=== PATIENT | female | born 1985 | race Caucasian/White ===

== ENCOUNTER 2017-01-10 22:17 | Observation (INO) | payer SELFPAY ==
[~2017-01-10] VITALS: Ht 162.6 cm; Wt 56.7 kg
[2017-01-10 22:20] VITALS: BP 103/50
[2017-01-10] MEDS ORDERED: NKM (22:20)
--- NOTE | 2017-01-10 22:39 | Emergency Room Report ---
History of Present Illness General Chief Complaint: Abdominal Pain Source: Patient Present Illness HPI Is a 31-year-old female with no past medical issue. She presents with chief complaint abdominal pain. onset was acute and occurred around 3 PM. Pain is to the right upper quadrant. Radiate to the flank and also to the left side. She has nausea vomiting. Pain is 10 out of 10. Sharp in nature. No diarrhea. Subjective fever with chills never had this problem before. Onset was acute. Allergies: Coded Allergies: No Known Allergies (Unverified , 01/10/17) Patient History Past Medical History: none, see triage record, old chart reviewed Past Surgical History: none Pertinent Family History: none Social History: Denies: smoking Last Menstrual Period: DECEMBER 14 Now: No Immunizations: other Reviewed Nursing Documentation: PMH: Agreed, PSxH: Agreed Review of Systems Eye: Denies: blurred vision, eye pain ENT: Denies: ear pain, nose congestion, throat swelling Respiratory: Denies: cough, shortness of breath Cardiovascular: Denies: chest pain, palpitations Gastrointestinal: Reports: abdominal pain, nausea, vomiting, Denies: diarrhea Musculoskeletal: Denies: back pain, joint pain Skin: Denies: rash Neurological: Denies: headache, numbness Endocrine: Denies: increased thirst, increased urine Hematologic/Lymphatic: Denies: easy bruising All Other Systems: negative except mentioned in HPI Physical Exam Vital Signs Date Time Temp Pulse Resp B/P Pulse Ox O2 Delivery O2 Flow Rate FiO2 01/10/17 22:11 98.4 98 18 119/71 97 Room Air vitals normal Sp02 EP Interpretation: reviewed, normal General Appearance: well appearing, alert, moderate distress - From pain Head: normocephalic, atraumatic Eyes: bilateral eye EOMI, bilateral eye PERRL ENT: hearing grossly normal, normal pharynx Neck: full range of motion, supple, no meningismus Respiratory: chest non-tender, lungs clear, normal breath sounds Cardiovascular #1: regular rate, rhythm, no murmur Gastrointestinal: normal bowel sounds, no mass, no organomegaly, no bruit, non- distended, tenderness - Right upper quadrant Musculoskeletal: back normal, gait/station normal, normal range of motion Psychiatric: mood/affect normal Skin: warm/dry Procedures Critical Care Time Critical Care Time Critical care is mandated in this patient who presented with rupture ectopic . Patient require my urgent intervention to attenuate the risks of metabolic collapse which may lead to cardiovascular collapse and . Critical care time is 35 minutes excluding any reportable procedure. Critical care time included evaluation, multiple reevaluation, looking at old charts, interpreting laboratory and diagnostic data, discussing case with patient and family and consultants, and charting. Medical Decision Making Diagnostic Impression: Primary Impression: Ruptured ectopic Additional Impression: Acute post-hemorrhagic anemia ER Course Patient with abdominal pain. I did a bedside ultrasound and gallbladder was normal. There is fluid in the right paracolic gutter. Business Taxes Specialist did an ultrasound and show that there is fluid in the pelvis. There is no IUP. This is concerning for ectopic . Probably ruptured. Blood pressure was tenuous with systolic in the high 90s to low 100. She is anemic and this is worrisome for bleeding. I discussed the case with Dr. Tulio Fisher, NETWORK SECURITY ENGINEER, who will activate the OR team. Lab Results Impression labs with anemia CT/MRI/US Diagnostic Results CT/MRI/US Diagnostic Results : Imaging Test Ordered: Pelvic ultrasound Impression read by partner. Fluid in the pelvis. no IUP. concerning for ectopic. Last Vital Signs Date Time Temp Pulse Resp B/P Pulse Ox O2 Delivery O2 Flow Rate FiO2 01/10/17 22:20 98.4 87 24 103/50 98 Room Air Status: improved Disposition: ADMITTED INPATIENT Condition: Serious JANAY TAYLOR M.D. January 10, 2017 22:39
[2017-01-10] MEDS ORDERED: Morphine Sulfate 4mg/ml Inj IVP ONE (22:45)
[2017-01-10 22:51] LABS: MEAN CORPUSCULAR HEMOGLOBIN 24.2 PG (27.0-31.0); MEAN CORPUSCULAR HGB CONC 32.2 G/DL (32.0-36.0); MEAN CORPUSCULAR VOLUME 75 FL (80-99); MEAN PLATELET VOLUME 8.2 FL (6.5-10.1); PLATELET COUNT 211 K/UL (150-450); RED BLOOD COUNT 3.68 M/UL (4.20-5.40); RED CELL DISTRIBUTION WIDTH 13.1 % (11.6-14.8); WHITE BLOOD COUNT 10.9 K/UL (4.8-10.8)
[2017-01-10 23:02] LABS: ALANINE AMINOTRANSFERASE 6 U/L (3-33); ALBUMIN/GLOBULIN RATIO 1.4 (1.0-2.7); ANION GAP 12 (5-15); ASPARTATE AMINO TRANSFERASE 8 U/L (5-40); CALCIUM 8.6 mg/dL (8.6-10.2); CARBON DIOXIDE 25 mEQ/L (20-30); CHLORIDE 98 mEQ/L (98-107); CREATININE 0.4 mg/dL (0.5-0.9); GLOMERULAR FILTRATION RATE > 60 mL/min (>60); HEMOLYSIS 1; LIPASE 30 U/L (< 60); POTASSIUM 3.9 mEQ/L (3.4-4.9); SODIUM 135 mEQ/L (135-145); TOTAL PROTEIN 6.2 g/dL (6.6-8.7)
[2017-01-10 23:06] LABS: APPEARANCE,URINE SLIGHTLY CLOUDY; KETONES,URINE 3+ (NEGATIVE); LEUKOCYTE ESTERASE ,URINE NEGATIVE (NEGATIVE); NITRITE,URINE NEGATIVE (NEGATIVE); PH,URINE 6 (4.5-8.0); PROTEIN,URINE 1+ (NEGATIVE); UROBILINOGEN,URINE NORMAL MG/DL (0.0-1.0)
[2017-01-10 23:17] LABS: BACTERIA,URINE MODERATE /HPF; ICTOTEST NEGATIVE; MUCUS,URINE FEW /LPF (NONE/OCC); SQUAMOUS EPITHELIAL CELL,UR MANY /LPF (NONE/OCC); WBC,URINE 0-2 /HPF (0 - 2)
[2017-01-10 23:30] VITALS: BP 98/40
[2017-01-11] VITALS (13 sets, daily range): BP systolic 98–139; BP diastolic 46–79
[2017-01-11] MEDS ORDERED: Morphine Sulfate 4mg/ml Inj IVP ONE
[2017-01-11 00:14] LABS: BAND NEUTROPHILS % (MANUAL) 4 % (0-8); LYMPHOCYTES % (MANUAL) 14 % (20-45); NEUTROPHILS % (MANUAL) 82 % (45-75); TOTAL CELLS COUNTED 100
[2017-01-11 00:15] LABS: ANISOCYTOSIS 1+; BASOPHILS % (MANUAL) 0 % (0-2); EOSINOPHILS % (MANUAL) 0 % (0-3); PLATELET ESTIMATE ADEQUATE; PLATELET MORPHOLOGY NORMAL; POIKILOCYTOSIS 1+
[2017-01-11] MEDS ORDERED: Ipratropium 0.02% Inh Soln 2.5ml UD ONE (00:21)
[2017-01-11] MEDS ORDERED: Albuterol ud Inhalation ONE (00:21)
[2017-01-11] MEDS ORDERED: Ketorolac 30mg Inj IV ONE (01:00)
[2017-01-11] MEDS ORDERED: Hydromorphone 0.5mg/0.5ml inj ONE (01:32)
[2017-01-11] MEDS ORDERED: HYDROmorphone 1mg/ml Carpuject IVP ONE ×2 (01:45→02:15)
[2017-01-11] MEDS ORDERED: Ropivacaine 5mg/ml Vial 20ml INJ ONE (01:51)
--- NOTE | 2017-01-11 02:31 | Anethesia Preoperative Eval ---
Anesthesia Pre-op PMH/ROS General Date of Evaluation: January 11, 2017 Anesthesiologist: Jonny ASA Score: ASA 1 - E Mallampati Score Class I : Soft palate, uvula, fauces, pillars visible Class II: Soft palate, uvula, fauces visible Class III: Soft palate, base of uvula visible Class IV: Only hard plate visible Mallampati Classification: Class II Surgeon: Natalia Diagnosis: Ectopic Surgical Procedure: Laparoscopic ectopic treatment Anesthesia History: none Family History: no anesthesia problems Allergies: Coded Allergies: No Known Allergies (Unverified , 01/10/17) Medications: see eMAR Past Medical History Cardiovascular: Denies: CAD, HTN, [place], arrhythmia, other, valve dz Pulmonary: Denies: COPD, ALFREDO, asthma, other Gastrointestinal/Genitourinary: Denies: CRI, ESRD, GERD, other Neurologic/Psychiatric: Denies: CVA, TIA, dementia, depression/anxiety, other Endocrine: Denies: DM, hypothyroidism, other, steroids HEENT: Denies: [place] (L), [place] (R), cataract (L), cataract (R), glaucoma, other Hematology/Immune: Reports: anemia - acute, Denies: DVT, bleeding disorder, other Musculoskeletal/Integumentary: Denies: DDD, DJD, OA, RA, edema, other PSxH Narrative: liposuction Anesthesia Pre-op Phys. Exam Physician Exam Last Vital Signs Date Time Temp Pulse Resp B/P Pulse Ox O2 Delivery O2 Flow Rate FiO2 01/11/17 01:30 98.4 01/11/17 01:30 84 17 115/79 100 Room Air Constitutional: other - in severe pain Cardiovascular: other - tachy Respiratory: CTA Airway Exam Mallampati Score: Class II MO: full ROM: full Teeth: intact Anesthesia Pre-op A/P Labs Hematology Test 01/10/17 22:32 White Blood Count 10.9 K/UL (4.8-10.8) H Red Blood Count 3.68 M/UL (4.20-5.40) L Hemoglobin 8.9 G/DL (12.0-16.0) L Hematocrit 27.7 % (37.0-47.0) L Mean Corpuscular Volume 75 FL (80-99) L Mean Corpuscular Hemoglobin 24.2 PG (27.0-31.0) L Mean Corpuscular Hemoglobin Concent 32.2 G/DL (32.0-36.0) Red Cell Distribution Width 13.1 % (11.6-14.8) Platelet Count 211 K/UL (150-450) Mean Platelet Volume 8.2 FL (6.5-10.1) Neutrophils (%) (Auto) % (45.0-75.0) Lymphocytes (%) (Auto) % (20.0-45.0) Monocytes (%) (Auto) % (1.0-10.0) Eosinophils (%) (Auto) % (0.0-3.0) Basophils (%) (Auto) % (0.0-2.0) Differential Total Cells Counted 100 Neutrophils % (Manual) 82 % (45-75) H Lymphocytes % (Manual) 14 % (20-45) L Monocytes % (Manual) 0 % (1-10) L Eosinophils % (Manual) 0 % (0-3) Basophils % (Manual) 0 % (0-2) Band Neutrophils 4 % (0-8) Platelet Estimate Adequate Platelet Morphology Normal Poikilocytosis 1+ Anisocytosis 1+ Chemistry Test 01/10/17 22:32 01/10/17 23:40 Sodium Level 135 mEQ/L (135-145) Potassium Level 3.9 mEQ/L (3.4-4.9) Chloride Level 98 mEQ/L (98-107) Carbon Dioxide Level 25 mEQ/L (20-30) Anion Gap 12 (5-15) Blood Urea Nitrogen 10 mg/dL (7-23) Creatinine 0.4 mg/dL (0.5-0.9) L Estimat Glomerular Filtration Rate > 60 mL/min (>60) Glucose Level 142 mg/dL (74-106) H Calcium Level 8.6 mg/dL (8.6-10.2) Total Bilirubin 0.2 mg/dL (0.0-1.2) Aspartate Amino Transf (AST/SGOT) 8 U/L (5-40) Alanine Aminotransferase (ALT/SGPT) 6 U/L (3-33) Alkaline Phosphatase 32 U/L (35-104) L Total Protein 6.2 g/dL (6.6-8.7) L Albumin 3.7 g/dL (3.5-5.2) Globulin 2.5 g/dL Albumin/Globulin Ratio 1.4 (1.0-2.7) Lipase 30 U/L (< 60) Human Chorionic Gonadotropin, Quant 5415 mIU/mL Urine Test Test 01/10/17 22:58 Urine HCG, Qualitative Positive Risk Assessment & Plan Assessment: ASA IE Plan: GA Status Change Before Surgery: No Pre-Antibiotics Drug: Ancef 1g Given Within 1 Hr of Incision: Yes Time Given: 03:30 STARLA EVANS M.D. January 11, 2017 02:31
[2017-01-11] MEDS ORDERED: fentaNYL 250mcg/5ml ONE (03:00)
[2017-01-11] MEDS ORDERED: NS Irrig 1000ml ONE (03:00)
[2017-01-11] MEDS ORDERED: Propofol 10mg/ml 20ml IV ONE (03:00)
[2017-01-11] MEDS ORDERED: Midazolam 2mg/2ml Inj ONE (03:00)
[2017-01-11] MEDS ORDERED: Metoclopramide 10mg/2ml Inj ONE (03:00)
[2017-01-11] MEDS ORDERED: Sterile Water Irrig 1000ml IRRIG ONE (03:00)
[2017-01-11] MEDS ORDERED: LR 1000ml ONE (03:00)
[2017-01-11] MEDS ORDERED: Lidocaine 1% MPF 10mg/ml 5ml ONE (03:00)
[2017-01-11] MEDS ORDERED: Dexamethasone 4mg/ml vial ONE (03:00)
[2017-01-11] MEDS ORDERED: Nimbex 2mg/ml Inj 10ML IVP ONE (03:00)
--- NOTE | 2017-01-11 03:12 | Pre-Procedure Note/Attestation ---
Pre-Procedure Note/Attestation Complete Prior to Procedure Planned Procedure: right Procedure Narrative: Diagnostic Laparoscopy, Laparoscopic Treatment of the Ectopic , Possible Salpingectomy, Possible Salpingotomy Indications for Procedure Pre-Operative Diagnosis: Probable Right Ectopic - Ruptured Attestation I attest that I discussed the nature of the procedure; its benefits; risks and complications; and alternatives (and the risks and benefits of such alternatives ), prior to the procedure, with the patient (or the patient's legal compliance representative dealer). I attest that, if there was a reasonable possibility of needing a blood transfusion, the patient (or the patient's legal compliance representative dealer) was given the [facility] standardized written summary, pursuant to the [place]o [place] Blood Safety Act ([place] Health and Safety Code # 1645, as amended). I attest that I re-evaluated the patient just prior to the surgery and that there has been no change in the patient's H&P, except as documented below:NONE KAYLA RASCON January 11, 2017 03:12
--- NOTE | 2017-01-11 03:19 | Short Stay Surgery H&P ---
History of Present Illness History of Present Illness Chief Complaint Severe, acute onset of Right Lower Quadrant pain HPI Becki Pittman is a 31 year old female who was admitted on for Ectopic Patient History Allergies: Coded Allergies: No Known Allergies (Unverified , 01/10/17) PAST MEDICAL HISTORY: Past Surgeries: Social History: Medication History Scheduled No Known Medications* (NKM - No Known Medications*), 0 ., (Reported) Physical Exam Vital Signs Last Vital Signs Date Time Temp Pulse Resp B/P Pulse Ox O2 Delivery O2 Flow Rate FiO2 01/11/17 01:30 98.4 01/11/17 01:30 84 17 115/79 100 Room Air Labs Laboratory Tests Test 01/10/17 22:32 01/10/17 22:58 01/10/17 23:40 White Blood Count 10.9 K/UL (4.8-10.8) H Red Blood Count 3.68 M/UL (4.20-5.40) L Hemoglobin 8.9 G/DL (12.0-16.0) L Hematocrit 27.7 % (37.0-47.0) L Mean Corpuscular Volume 75 FL (80-99) L Mean Corpuscular Hemoglobin 24.2 PG (27.0-31.0) L Mean Corpuscular Hemoglobin Concent 32.2 G/DL (32.0-36.0) Red Cell Distribution Width 13.1 % (11.6-14.8) Platelet Count 211 K/UL (150-450) Mean Platelet Volume 8.2 FL (6.5-10.1) Neutrophils (%) (Auto) % (45.0-75.0) Lymphocytes (%) (Auto) % (20.0-45.0) Monocytes (%) (Auto) % (1.0-10.0) Eosinophils (%) (Auto) % (0.0-3.0) Basophils (%) (Auto) % (0.0-2.0) Differential Total Cells Counted 100 Neutrophils % (Manual) 82 % (45-75) H Lymphocytes % (Manual) 14 % (20-45) L Monocytes % (Manual) 0 % (1-10) L Eosinophils % (Manual) 0 % (0-3) Basophils % (Manual) 0 % (0-2) Band Neutrophils 4 % (0-8) Platelet Estimate Adequate Platelet Morphology Normal Poikilocytosis 1+ Anisocytosis 1+ Sodium Level 135 mEQ/L (135-145) Potassium Level 3.9 mEQ/L (3.4-4.9) Chloride Level 98 mEQ/L (98-107) Carbon Dioxide Level 25 mEQ/L (20-30) Anion Gap 12 (5-15) Blood Urea Nitrogen 10 mg/dL (7-23) Creatinine 0.4 mg/dL (0.5-0.9) L Estimat Glomerular Filtration Rate > 60 mL/min (>60) Glucose Level 142 mg/dL (74-106) H Calcium Level 8.6 mg/dL (8.6-10.2) Total Bilirubin 0.2 mg/dL (0.0-1.2) Aspartate Amino Transf (AST/SGOT) 8 U/L (5-40) Alanine Aminotransferase (ALT/SGPT) 6 U/L (3-33) Alkaline Phosphatase 32 U/L (35-104) L Total Protein 6.2 g/dL (6.6-8.7) L Albumin 3.7 g/dL (3.5-5.2) Globulin 2.5 g/dL Albumin/Globulin Ratio 1.4 (1.0-2.7) Lipase 30 U/L (< 60) Urine Color Ami Urine Appearance Slightly cloudy Urine pH 6 (4.5-8.0) Urine Specific [place] 1.020 (1.005-1.035) Urine Protein 1+ (NEGATIVE) H Urine Glucose (UA) Negative (NEGATIVE) Urine Ketones 3+ (NEGATIVE) H Urine Occult Blood 3+ (NEGATIVE) H Urine Nitrite Negative (NEGATIVE) Urine Bilirubin Negative (NEGATIVE) Urine Ictotest Negative Urine Urobilinogen Normal MG/DL (0.0-1.0) Urine Leukocyte Esterase Negative (NEGATIVE) Urine RBC 5-10 /HPF (0 - 2) H Urine WBC 0-2 /HPF (0 - 2) Urine Squamous Epithelial Cells Many /LPF (NONE/OCC) H Urine Bacteria Moderate /HPF (NONE) H Urine Mucus Few /LPF (NONE/OCC) H Urine HCG, Qualitative Positive Human Chorionic Gonadotropin, Quant 5415 mIU/mL XRay U/S with fluid in the pelvis Skin: normal HENT: normal Heart: normal Lungs: normal Abdomen: abnormal - Severe pain to palpation, rebound present Extremities: normal Genitourinary: normal Plan Plan of Care Emergency Laparoscopy Final Diagnosis: Attestation Are the patient's medical conditions optimized for surgery? Attestation Response: yes KAYLA RASCON January 11, 2017 03:19
[2017-01-11] MEDS ORDERED: NS Irrig 1000ml IRRIG ONE (03:42)
[2017-01-11] MEDS ORDERED: fentaNYL 100 mcg/2 mL IV PRN (03:45)
[2017-01-11] MEDS ORDERED: DiphenhydrAMINE 50mg/ml Inj IVP PRN (03:45)
[2017-01-11] MEDS ORDERED: Metoclopramide 10mg/2ml Inj IVP PRN (03:45)
[2017-01-11] MEDS ORDERED: Hydromorphone 0.5mg/0.5ml inj IVP PRN (03:45)
[2017-01-11] MEDS ORDERED: LR 1000ml 1,000 ML IVLG SCH (04:00)
--- NOTE | 2017-01-11 04:46 | Brief Operative Note ---
Immediate Post Operative Note Operative Note Pre-op Diagnosis: Probable Right Ectopic - Ruptured Procedure: Diagnostic Laparoscopy, Right Salpingotomy, evacuation of ectopic , Evacuation of hemoperitoneum, lysis of pelvic adhesions Post-op Diagnosis: same as pre-op plus - Pelvic adhesions Surgeon: Kayla Rascon MD Anesthesia: general Specimen: yes - Ectopic Complications: none Fluids: LR @ 150 cc/hr Estimated Blood Loss: volume - 1450 cc Drains: none Implant(s) used?: No KAYLA RASCON January 11, 2017 04:46
--- NOTE | 2017-01-11 04:53 | Immediate Post-Op Evaluation ---
Immediate Post-Op Evalulation Immediate Post-Op Evalulation Procedure: Laparoscopic excision ectopic Date of Evaluation: January 11, 2017 Time of Evaluation: 04:53 IV Fluids: 2.3L Blood Products: 0 Estimated Blood Loss: 1.45L Urinary Output: 250 Blood Pressure Systolic: 111 Blood Pressure Diastolic: 65 Pulse Rate: 77 Respiratory Rate: 15 O2 Sat by Pulse Oximetry: 100 Temperature (Fahrenheit): 97.2 Pain Score (1-10): 0 Nausea: No Vomiting: No Complications 0 Patient Status: awake, reacts, patent, none Hydration Status: adequate Drug: Ancef 1g Given Within 1 Hr of Incision: Yes Time Given: 03:30 STARLA EVANS M.D. January 11, 2017 04:53
[2017-01-11] MEDS ORDERED: Ketorolac 60mg Inj IM ONE (05:30)
[2017-01-11] MEDS ORDERED: Ketorolac 30mg Inj IV SCH (05:30)
[2017-01-11] MEDS: LR 1000ml 1,000 ML IV SCH ×3 (06:38→18:50)
[2017-01-11] MEDS: Norco 5mg/325mg tab ORAL PRN ×2 (08:37→14:44)
[2017-01-11 10:40] LABS: MEAN CORPUSCULAR HEMOGLOBIN 24.3 PG (27.0-31.0); MEAN CORPUSCULAR HGB CONC 32.6 G/DL (32.0-36.0); MEAN CORPUSCULAR VOLUME 75 FL (80-99); MEAN PLATELET VOLUME 7.7 FL (6.5-10.1); PLATELET COUNT 144 K/UL (150-450); RED BLOOD COUNT 2.87 M/UL (4.20-5.40); RED CELL DISTRIBUTION WIDTH 13.3 % (11.6-14.8); WHITE BLOOD COUNT 8.6 K/UL (4.8-10.8)
[2017-01-11 11:02] LABS: LYMPHOCYTES % (MANUAL) 10 % (20-45); NEUTROPHILS % (MANUAL) 88 % (45-75); TOTAL CELLS COUNTED 100
[2017-01-11 11:03] LABS: BAND NEUTROPHILS % (MANUAL) 0 % (0-8); BASOPHILS % (MANUAL) 0 % (0-2); EOSINOPHILS % (MANUAL) 0 % (0-3); HYPOCHROMASIA 1+; PLATELET ESTIMATE ADEQUATE; PLATELET MORPHOLOGY NORMAL
[2017-01-11 11:04] LABS: MICROCYTES 1+
--- NOTE | 2017-01-11 11:13 | 48 Hour Post Anesthesia Eval ---
Post Anesthesia Evaluation Procedure: Laparoscopic excision ectopic Date of Evaluation: January 11, 2017 Time of Evaluation: 08:30 Blood Pressure Systolic: 112 0: 65 Pulse Rate: 102 Respiratory Rate: 20 Temperature (Fahrenheit): 97.3 O2 Sat by Pulse Oximetry: 99 Airway: patent Nausea: No Vomiting: No Pain Intensity: 2 Hydration Status: adequate Cardiopulmonary Status: at baseline Mental Status/LOC: patient returned to baseline Post-Anesthesia Complications: 0 Follow-up care needed: N/A - further care as per primary team STARLA EVANS M.D. January 11, 2017 11:13
[2017-01-11] MEDS: Ketorolac 30mg Inj IV SCH ×2 (11:43→17:27)
[2017-01-11] MEDS ORDERED: NORCO 5-325 TA1 EACH ORAL (16:14)
--- NOTE | 2017-01-12 09:19 | Diagnostic Imaging Report ---
Indication:Lower abdominal and pelvic pain Technique: Grayscale and duplex Doppler imaging of the pelvis performed utilizing a transabdominal scan and endovaginal scan. Comparison: None Findings: There is echogenic free fluid within the pelvis of a moderate degree. There is heterogeneous nonvascular appearing suspected hematoma just posterior to the urinary bladder adjacent to the uterus. There is a cystic focus in the right adnexa that measures about 1 cm. The focus does not contain a yolk sac or pole. Nevertheless, findings are highly suspicious for ruptured ectopic and hemoperitoneum given the positive test. Uterus measures 6 x 5 x 3.5 CM. There is no intrauterine . Endometrium is about 4 mm in thickness. Right ovary is not seen. Left ovary is 2.1 x 1.8 x 2.7 cm. Impression: Findings highly suspicious for ruptured ectopic as described above. Critical value communication. Findings in this report were conveyed to emergency room physician at approximately 12:40 a.m., 01/11/17
[2017-01-13 11:23] LABS: OTHERS PATHOLOGIST COMMENT
--- NOTE | 2017-01-16 01:01 | Operative Note - Dictated ---
SURGEON: Tulio Fisher M.D. ANESTHESIA: General endotracheal. ANESTHESIOLOGIST: Dr. Pardo. PREOPERATIVE DIAGNOSIS: Ruptured ectopic . POSTOPERATIVE DIAGNOSIS: Ruptured ectopic . PROCEDURE PERFORMED: 1. Diagnostic laparoscopy. 2. Laparoscopic right salpingotomy and evacuation of extensive hemoperitoneum. APPROXIMATE BLOOD LOSS: 1450 mL. PROCEDURE IN DETAIL: After all the appropriate consents were signed, the patient was brought to the operating room and placed on table in supine position. General endotracheal anesthesia was induced without complication. The patient was then placed in dorsal lithotomy position. Vagina and abdomen were prepped and draped. The patient then examined under anesthesia and Dhillon catheter was placed. The procedure then continued with the vaginal portion where the cervix was dilated and a uterine manipulator was placed. The procedure then continued with the abdominal portion. Umbilical incision was made. Veress needle was advanced and the abdomen was insufflated to 15 mmHg. A 10 mm trocar was placed in the umbilicus followed by two additional trocars in the lower abdomen at the midline and the left lower quadrant. The procedure then continued with visualization of the pelvis where there appeared to be large amount of blood in the pelvic cavity. The uterus was elevated and the tube on the right was seen to contain ectopic and there was ruptured segment of the tube which was extensively bleeding. At this time, the procedure continued with the performing salpingotomy along the inner tube starting with place where the tube was ruptured. The salpingotomy was continued until the could be identified and the was removed and multiple pieces from the Additional contents of the tubes were squeezed out using traction countertraction technique. At this time, the tube was well evaluated and the edges of the salpingotomy were coagulated with bipolar. The procedure then continued with full evacuation of the abdomen, extensive irrigation, and suctioned of blood and debris was undertaken, finally approximately 1450 mL blood was evacuated from the abdomen. The opposite side tube was also visualized and found to be within normal limits. At this time, the patient once again evaluated and the tube was found to be completely hemostatic. All debris and blood were suctioned from the abdomen. The instruments were now removed under direct visualization with the laparoscope. All the operative sites and the puncture sites were made hemostatic. The operative scope was removed last from the umbilical incision and all the incisions were closed. The fascial layer was closed with 0 Vicryl suture and the skin was approximated with Steri-Strips and benzoin. The patient was placed back in the supine position and awakened from general anesthesia. She tolerated the procedure very well. Tulio Alicia Fisher DR: Dominick JOB#: [id number] CC:
== END 2017-01-11 19:00 | disposition home or self-care (01) ==
LOC: EDBD 22:17 → EMR 22:29 → SUR 01-11 01:24 → EDBEDREQ 01-11 02:11 → 3E 01-11 05:30
DX: O00.10 Tubal pregnancy without intrauterine pregnancy (principal); K66.1 Hemoperitoneum; D62 Acute posthemorrhagic anemia
CPT/HCPCS: 36415; 49322; 59151; 76830; 76856; 80053; 81003; 81025; 83690; 84702; 85007; 85025; 86850; 86900; 86901; 87086; 99291; G0378; G0379; J0690; J1100; J1170; J1885; J2250; J2270; J2405; J2704; J2765; J2795; J3010; J7120; P9045; 94003; 94150